=== PATIENT | female | born 1975 | race Caucasian/White ===

== ENCOUNTER → 2019-09-04 13:26 | Outpatient (BNVA) | payer BC, SELFPAY | PROVIDERS: PCP Registered Nurse; Visit Provider Internal Medicine Rheumatology | DX: L50.9 Urticaria, unspecified (principal); R76.8 Other specified abnormal immunological findings in serum; Z79.899 Other long term (current) drug therapy; H04.123 Dry eye syndrome of bilateral lacrimal glands | CPT/HCPCS: 36415; 80076; 81001; 82306; 82565; 82570; 84156; 85025; 85651; 86140; 86160; 99204 ==

== ENCOUNTER → 2019-10-07 13:39 | Outpatient (BNVA) | payer BC, SELFPAY | PROVIDERS: PCP Registered Nurse; Visit Provider Internal Medicine Rheumatology | DX: L50.9 Urticaria, unspecified (principal); R76.8 Other specified abnormal immunological findings in serum; Z79.899 Other long term (current) drug therapy; M25.50 Pain in unspecified joint; N30.00 Acute cystitis without hematuria; R74.0 Nonspecific elevation of levels of transaminase and lactic acid dehydrogenase [LDH] | CPT/HCPCS: 99214 ==